=== PATIENT | female | born 1950 | race Caucasian/White ===

== ENCOUNTER 2024-03-11 04:07 | Day surgery (SDC) | payer OTHER, BC ==
[2024-03-08 15:29] VITALS: BMI 30.7
[2024-03-11] MEDS ORDERED: MIDAZOLAM HCL 2 MG/2 ML SINGLE DOSE VIAL ONE (07:32)
[2024-03-11] MEDS ORDERED: LIDOCAINE HCL/PF 2% SDV 5ML VIAL ONE (07:32)
[2024-03-11] MEDS ORDERED: PROPOFOL 20 ML ONE (07:32)
[2024-03-11] MEDS ORDERED: DEXMEDETOMIDINE HCL 200 MCG/2 ML IVPB ONE (07:38)
[2024-03-11] MEDS ORDERED: LIDOCAINE HCL 1%, 10 MG/ML (20ML VIAL) ONE (07:44)
[2024-03-11] MEDS: ceFAZolin SODIUM 1 GM VIAL IVPB ONE ×2 (08:06)
[2024-03-11] MEDS ORDERED: ceFAZolin SODIUM 1 GM VIAL ONE (08:07)
[2024-03-11] MEDS: LIDOCAINE HCL 1%, 10 MG/ML (20ML VIAL) INF ONE ×3 (08:16)
[2024-03-11] MEDS ORDERED: PROTAMINE SULFATE 50 MG/5 ML VIAL ONE (09:24)
[2024-03-11] MEDS ORDERED: PROMETHAZINE HCL 25 MG/1 ML VIAL IVPB PRN (09:29)
[2024-03-11] MEDS ORDERED: ONDANSETRON 4 MG/2 ML VIAL IVPUSH PRN (09:29)
[2024-03-11] MEDS ORDERED: oxyCODONE HCL 5 MG TABLET PO PRN ×2 (09:29)
[2024-03-11] MEDS ORDERED: ACETAMINOPHEN INJECTION 100 ML ONE (10:07)
[2024-03-11] MEDS: ACETAMINOPHEN 1000 MG/100 ML BAG IVPB ONE (10:10)
[2024-03-11] MEDS: LACTATED RINGERS SOLUTION 1,000 ML IV SCH (10:11)
[2024-03-11 11:18] VITALS: RESP 18
[2024-03-11] MEDS ORDERED: ASPIRIN 81 MG CHEWABLE TABLETS ONE (12:18)
[2024-03-11] MEDS: CLOPIDOGREL BISULFATE 300 MG TABLET PO STA (12:24)
[2024-03-11] MEDS: ASPIRIN 81 MG CHEWABLE TABLETS PO STA (12:24)
[2024-03-11 12:49] VITALS: BP 136/60; PULSE 47; TEMP 96.9
== END 2024-03-11 12:50 | disposition home or self-care (01) ==
LOC: JASU-SURG 04:07
PROVIDERS: ATTEND Surgery
PROC: 047U3ZZ Dilation of Left Peroneal Artery, Percutaneous Approach (ICD-10-PCS; 2024-03-11)
PROC: X2K New Technology, Cardiovascular System, Bypass (ICD-10-PCS; principal; 2024-03-11 08:00)
DX: E11.51 Type 2 diabetes mellitus with diabetic peripheral angiopathy without gangrene (principal); Z79.84 Long term (current) use of oral hypoglycemic drugs; S91.102A Unspecified open wound of left great toe without damage to nail, initial encounter; X58.XXXA Exposure to other specified factors, initial encounter; Y93.9 Activity, unspecified; Y92.9 Unspecified place or not applicable; Y99.9 Unspecified external cause status; I77.1 Stricture of artery
CPT/HCPCS: 37226; 37229; C2617; 76000-TC-FY; 94760; C1760; C1769; C1776; J0131

== ENCOUNTER 2024-07-01 06:11 | Day surgery (SDC) | payer OTHER, BC ==
[2024-06-24 14:59] VITALS: BMI 31.2
[2024-07-01] MEDS ORDERED: LIDOCAINE HCL 1%, 10 MG/ML (20ML VIAL) ONE (07:23)
[2024-07-01] MEDS ORDERED: DEXMEDETOMIDINE HCL 200 MCG/2 ML IVPB ONE (07:52)
[2024-07-01] MEDS ORDERED: MIDAZOLAM HCL 2 MG/2 ML SINGLE DOSE VIAL ONE (08:05)
[2024-07-01] MEDS ORDERED: PROPOFOL 20 ML ONE (08:10)
[2024-07-01] MEDS: ceFAZolin SODIUM 1 GM VIAL IVPB ONE ×2 (08:13)
[2024-07-01] MEDS: LIDOCAINE HCL 1%, 10 MG/ML (20ML VIAL) INF ONE (08:15)
[2024-07-01] MEDS ORDERED: ONDANSETRON 4 MG/2 ML VIAL IVPUSH PRN (09:27)
[2024-07-01] MEDS ORDERED: LACTATED RINGERS SOLUTION 1,000 ML IV SCH (09:30)
[2024-07-01] MEDS ORDERED: ACETAMINOPHEN 325 MG TABLET (FP) PO PRN (09:30)
[2024-07-01 10:48] VITALS: BP 109/60; PULSE 50; RESP 14; TEMP 96.9
== END 2024-07-01 12:39 | disposition home or self-care (01) ==
LOC: JASU-SURG 06:11
PROVIDERS: ATTEND Surgery
PROC: 047M3ZZ Dilation of Right Popliteal Artery, Percutaneous Approach (ICD-10-PCS; 2024-07-01)
PROC: 047P3ZZ Dilation of Right Anterior Tibial Artery, Percutaneous Approach (ICD-10-PCS; 2024-07-01)
PROC: 047K3Z1 Dilation of Right Femoral Artery using Drug-Coated Balloon, Percutaneous Approach (ICD-10-PCS; principal; 2024-07-01 08:00)
DX: E11.51 Type 2 diabetes mellitus with diabetic peripheral angiopathy without gangrene (principal); I70.221 Atherosclerosis of native arteries of extremities with rest pain, right leg; Z79.4 Long term (current) use of insulin
CPT/HCPCS: 76000-TC-FY; 82962; 86850; 86900; 86901; 94760; C1760; C1769; C1894; C2623